=== PATIENT | female | born 1955 | race Caucasian/White ===

== ENCOUNTER 2020-09-29 23:03 | Emergency (ER) | payer BC, MEDICARE, SELFPAY ==
--- NOTE | ~2020-09-29 | XR_ITS ---
EXAMINATION: XR CHEST CLINICAL INFORMATION: Syncope COMPARISON: None TECHNIQUE: Frontal view of the chest was obtained. FINDINGS: The cardiac and mediastinal contours are normal. The lungs are clear. There is no pleural effusion or pneumothorax. There are degenerative changes of the spine. XR/XR chest 1V IMPRESSION: Unremarkable examination.
--- NOTE | ~2020-09-29 | CT_ITS ---
EXAMINATION: CT HEAD WITHOUT CONTRAST CLINICAL INFORMATION: Syncope COMPARISON: 03/18/2018 TECHNIQUE: Contiguous axial imaging was performed from the skull base to vertex without intravenous administration of contrast. This CT examination was performed using dose optimization techniques as appropriate, variously including the following: *Automated exposure control *Adjustment of mA and/or kV according to patient size (this includes techniques or standardized protocols for targeted exams where dose is matched to indication/reason for exam; i.e. extremities or head) *Use of iterative reconstruction technique DLP: 698 mGy-cm FINDINGS: There is no evidence of acute intracranial hemorrhage or territorial infarction. No abnormal mass effect or midline shift is seen. Yu to white matter differentiation is well preserved. No extra-axial fluid collections are identified. The ventricles are normal in size. There is no abnormal attenuation within the brain parenchyma. The osseous structures and soft tissues are normal. The mastoid air cells and visualized portions of the paranasal sinuses are well aerated. CT/CT head/brain wo con IMPRESSION: No acute intracranial pathology.
--- NOTE | 2020-09-29 23:07 | ECG_ITS ---
Test Reason : SYNCOPE Blood Pressure : / mmHG Vent. Rate : 051 BPM Atrial Rate : 051 BPM P-R Int : 194 ms QRS Dur : 110 ms QT Int : 488 ms P-R-T Axes : 079 -27 031 degrees QTc Int : 449 ms Sinus bradycardia Minimal voltage criteria for LVH. Abnormal ECG When compared with ECG of 13-MAR-2005 20:57, No significant change was found Referred By: Yolanda Coreas Electronically Signed By:Armand Junior
[2020-09-29 23:14] VITALS: BP 111/64; PULSE 53; RESP 14; TEMP 37; O2SAT 96; BMI 24.3
[2020-09-29 23:29] VITALS: BP 99/56; PULSE 55; RESP 16; TEMP 36.6; O2SAT 96; BMI 25.0
--- NOTE | 2020-09-29 23:33 | ED_ITS ---
HPI - Syncope General Chief Complaint: Syncope Stated Complaint: syncope fall Time Seen by Provider: 09/29/20 23:07 Source: patient Mode of arrival: ambulatory History of Present Illness HPI narrative: 65-year-old female with significant past medical history of rheumatoid arthritis on Enbrel for 20 years and no recent changes as well as ci talopram for depression. Patient is brought in by EMS after she had 2 episodes of syncope and does not recall any prodromes such as palpitations/visual changes/shortness of breath/dizziness. Patient states that the 1st episode occurred when she went to the kitchen to get a cookie and then woke up on the kitchen floor with her family asking ?word the blood come from?. Patient states that she stood up and was walking through the pate and then again the next recollection was that her son was shaking her and asking her if she was okay. She stated that time she was ?very sweaty and had cold skin?. Patient sources that she has had a bottle of wine, Ativan, as well as 5 mg THC but that she usu ally has this without any complications. However, patient states that she has not had water all day. Patient's 2nd COVID-19 vaccine was on 09/17. Related Data Allergies Allergy/AdvReac Type Severity Reaction Status Date / Time dicloxacillin [DICLOXACILLIN] Allergy Severe ANAPHYLAXIS Verified 09/29/20 23:13 nystatin [NYSTATIN] Allergy Intermediate THRUSH Verified 09/29/20 23:13 docosanol [Abreva] Allergy Unknown Hives Verified 09/29/20 23:13 leflunomide [From ARAVA] Allergy Unknown RASH Verified 09/29/20 23:13 Review of Systems Review of Systems: Pertinent positives and negatives as stated in HPI 10 point review of systems is otherwise negative. [facility] Past Medical History Source: nursing notes reviewed Medical History Rheumatoid arthritis Social History Social History Alcohol intake: current Alcohol intake frequency: a few times a week Alcohol type: wine Smoking Status: Never smoker Substance Use Type: Marijuana Substance Use Type Other:: MARIJUANA GUMMIES FOR SLEEP Substance Use Frequency: Daily Advance Directives: No Advance Directives Information Provided: No Physical Exam Vital Signs: Vital Signs: Last Vital Signs Temp 97.9 F 09/29/20 23:29 Pulse 64 09/30/20 00:21 Resp 16 09/29/20 23:29 BP 107/66 09/30/20 00:21 Pulse Ox 96 09/29/20 23:29 Body Mass Index 25.0 VITAL SIGNS: Reviewed. GENERAL: Well developed, well nourished, in no acute distress. HEAD: Normocephalic/2 cm laceration to submental that is hemostatic EYES: PERRLA, EOMI intact without pain, no nystagmus NOSE: Nares patent bilateral OROPHARYNX: no oral lesions noted, posterior pharynx clear, no intraoral lesions NECK: Supple, no adenopathy LUNGS: Normal breath sounds. No adventitious sounds or accessory muscle use. SpO2<96> CARDIOVASCULAR: Regular rate and rhythm without noted murmurs ABDOMEN: Soft, non-tender, non-distended with bowel sounds. MUSCULOSKELETAL: No tenderness, deformities, or effusions noted on gross inspection. EXTREMITIES: No cyanosis, clubbing or edema. SKIN: Inspection of the skin reveals no rashes, ulcerations, jaundice, pallor, or petechiae. NEUROLOGIC: Alert and oriented x 4. Strength and sensation to light touch were grossly intact x 4, cranial nerves 2-12 grossly intact, no pronator drift, no facial asymmetry. Course Course Course Narrative: 65-year-old female with history and clinical presentation most consistent with drug associated vasovagal episode likely contributed by poor fluid intake but will evaluate for evidence of infection, anemia, or arrhythmia. Review of all investigations negative for any acute findings that may have contributed to patient's syncopal episode. Orthostatics are negative and point of care glucose is within normal limits. All results and findings were discussed with patient at bedside, she received 1 L of IV fluids and the small submental laceration was repaired with Dermabond and patient was discharged home in stable condition. Procedures Laceration Laceration 1: Site: face Size (cm): 2 Description: linear Depth: simple, single layer Pre-repair: irrigated extensively Skin layer closed with: other (Dermabond) MDM - Syncope Lab Data Result diagrams: 09/29/20 23:48 09/29/20 23:48 Labs: Lab Results 05/07/21 05/07/21 05/07/21 Range/Units 23:48 23:48 23:48 WBC 4.6 L (4.8-10.8) X10*3/uL RBC 4.08 L (4.20-5.50) X10*6/uL Hgb 13.1 (12.0-16.0) g/dl Hct 39.9 (37-47) % MCV 97.8 (80-98) fL MCH 32.1 (27.0-33.0) pg MCHC 32.8 (31.0-35.0) g/dl RDW 12.5 (11.0-16.0) % Plt Count 207 (160-400) X10*3/uL MPV 9.8 (9.4-12.3) fL Immature Gran % (Auto) 0.0 (0.0-0.4) % Neut % (Auto) 28.7 L (45-73) % Lymph % (Auto) 60.2 H (20-40) % [place] % (Auto) 8.6 (2-11) % Eos % (Auto) 1.8 (0-4) % Baso % (Auto) 0.7 (0-2) % Lymph # (Auto) 2.7 (1.2-4.9) X10*3/uL [place] # (Auto) 0.4 (0.1-1.2) X10*3/uL Eos # (Auto) 0.1 (0.0-0.4) X10*3/uL Baso # (Auto) 0.0 (0.0-0.2) X10*3/uL Abs Immat Gran (auto) 0.00 (0.00-0.03) X10*3/uL Absolute Neuts (auto) 1.3 L (2.0-8.3) X10*3/uL Absolute Nucleated RBC 0.000 (0.0-0.012) X10*3/uL Nucleated RBC % (auto) 0.0 (0.0-0.2) /100WBC Smear Tech's Comments VERIFIED PT 10.7 L (10.8-13.0) SEC INR 0.9 (0.9-1.1) Sodium 142 (135-145) mmol/L Potassium 4.4 (3.3-5.1) mmol/L Chloride 105 (96-108) mmol/L Carbon Dioxide 26 (22-29) mmol/L Anion Gap 15 (12-20) BUN 12 (9-16) mg/dL Creatinine 1.06 (0.5-1.4) mg/dL Estim Creat Clear Calc 51.9 Estimated GFR 52 POC Glucose (60-115) mg/dL Random Glucose 89 (60-115) mg/dL Calcium 9.5 (8.4-10.2) mg/dL Magnesium (1.6-2.6) mg/dL Total Bilirubin 0.3 (0.0-1.0) mg/dL AST 22 (5-31) U/L ALT 15 (0-31) U/L Alkaline Phosphatase 62 (39-117) U/L Troponin I High Sens (<3.5-17.0) ng/L Total Protein 7.3 (6.5-8.0) g/dL Albumin 4.2 (3.5-5.0) g/dL 09/29/20 09/29/20 09/30/20 Range/Units 23:48 23:48 00:17 WBC (4.8-10.8) X10*3/uL RBC (4.20-5.50) X10*6/uL Hgb (12.0-16.0) g/dl Hct (37-47) % MCV (80-98) fL MCH (27.0-33.0) pg MCHC (31.0-35.0) g/dl RDW (11.0-16.0) % Plt Count (160-400) X10*3/uL MPV (9.4-12.3) fL Immature Gran % (Auto) (0.0-0.4) % Neut % (Auto) (45-73) % Lymph % (Auto) (20-40) % [place] % (Auto) (2-11) % Eos % (Auto) (0-4) % Baso % (Auto) (0-2) % Lymph # (Auto) (1.2-4.9) X10*3/uL [place] # (Auto) (0.1-1.2) X10*3/uL Eos # (Auto) (0.0-0.4) X10*3/uL Baso # (Auto) (0.0-0.2) X10*3/uL Abs Immat Gran (auto) (0.00-0.03) X10*3/uL Absolute Neuts (auto) (2.0-8.3) X10*3/uL Absolute Nucleated RBC (0.0-0.012) X10*3/uL Nucleated RBC % (auto) (0.0-0.2) /100WBC Smear Tech's Comments PT (10.8-13.0) SEC INR (0.9-1.1) Sodium (135-145) mmol/L Potassium (3.3-5.1) mmol/L Chloride (96-108) mmol/L Carbon Dioxide (22-29) mmol/L Anion Gap (12-20) BUN (9-16) mg/dL Creatinine (0.5-1.4) mg/dL Estim Creat Clear Calc Estimated GFR POC Glucose 78 (60-115) mg/dL Random Glucose (60-115) mg/dL Calcium (8.4-10.2) mg/dL Magnesium 2.2 (1.6-2.6) mg/dL Total Bilirubin (0.0-1.0) mg/dL AST (5-31) U/L ALT (0-31) U/L Alkaline Phosphatase (39-117) U/L Troponin I High Sens < 3.5 (<3.5-17.0) ng/L Total Protein (6.5-8.0) g/dL Albumin (3.5-5.0) g/dL ECG Data Attestation: I personally reviewed and interpreted this ECG as follows: Prior ECG tracings: not available for review Interpretation: Sinus bradycardia, HR -51, no evidence of acute ischemia, KS/QTC within normal limits Discharge Plan Discharge Clinical Impression: Vasovagal syncope Patient Disposition: Home, Self-Care Instructions: Syncope (ED) Additional Instructions: 1. Resume all home medications as prescribed. 2. Increase fluid hydration especially with water. 3. Please follow-up with your primary care provider in 2-3 days for re-basil luation. Do not hesitate to return to the emergency room for any acute worsening of your symptoms. Referrals: Physician,Unknown [Primary Care Provider] - 2 days
[2020-09-29 23:55] LABS: Basophils Percent Auto 0.7 % (0-2); Eosinophils Absolute Auto 0.1 X10*3/uL (0.0-0.4); Eosinophils Percent Auto 1.8 % (0-4); Hematocrit 39.9 % (37-47); Hemoglobin 13.1 g/dl (12.0-16.0); Lymphocytes Absolute Auto 2.7 X10*3/uL (1.2-4.9); Lymphocytes Percent Auto 60.2 % (20-40); MANUAL DIFF FLAG SCAN; Mean Corpuscular HGB Conc 32.8 g/dl (31.0-35.0); Mean Corpuscular Hemoglobin 32.1 pg (27.0-33.0); Mean Corpuscular Volume 97.8 fL (80-98); Mean Platelet Volume 9.8 fL (9.4-12.3); Monocytes Absolute Auto 0.4 X10*3/uL (0.1-1.2); Monocytes Percent Auto 8.6 % (2-11); Neutrophils Absolute Auto 1.3 X10*3/uL (2.0-8.3); Neutrophils Percent Auto 28.7 % (45-73); Platelet Count 207 X10*3/uL (160-400); Red Blood Count 4.08 X10*6/uL (4.20-5.50); Red Cell Distribution Width 12.5 % (11.0-16.0); SCAN SMEAR FLAG 1; White Blood Count 4.6 X10*3/uL (4.8-10.8)
[2020-09-30 00:05] LABS: INTERNATIONAL NORM RATIO 0.9 (0.9-1.1); Prothrombin Time 10.7 SEC (10.8-13.0)
[2020-09-30 00:15] LABS: SLIDE REVIEW VERIFIED
[2020-09-30 00:19] VITALS: BP 106/59; PULSE 54; PULSE 66
[2020-09-30 00:21] VITALS: BP 107/66; PULSE 64
[2020-09-30 00:22] LABS: Magnesium 2.2 mg/dL (1.6-2.6)
[2020-09-30 00:24] LABS: Alanine Aminotransferase 15 U/L (0-31); Albumin Level 4.2 g/dL (3.5-5.0); Alkaline Phosphatase 62 U/L (39-117); Anion Gap 15 (12-20); Aspartate Amino Transferase 22 U/L (5-31); Bilirubin Total 0.3 mg/dL (0.0-1.0); Blood Urea Nitrogen 12 mg/dL (9-16); Calcium 9.5 mg/dL (8.4-10.2); Carbon Dioxide 26 mmol/L (22-29); Chloride 105 mmol/L (96-108); Creatinine Clr Calc Pharmacy 51.9; Estimated Glomerular Filt Rate 52; Glucose Random 89 mg/dL (60-115); Potassium 4.4 mmol/L (3.3-5.1); Sodium 142 mmol/L (135-145); Total Protein 7.3 g/dL (6.5-8.0)
[2020-09-30 00:25] LABS: Glucose, Whole Blood 78 mg/dL (60-115)
[2020-09-30 00:29] LABS: Troponin-I High Sensitivity < 3.5 ng/L (<3.5-17.0)
[2020-09-30] MEDS: 0.9 % Sodium Chloride 1,000 ML 999 ML IV (00:49)
== END 2020-09-30 02:04 | disposition home or self-care (01) ==
PROVIDERS: Emergency Provider Student in an Organized Health Care Education/Training Program
DX: R55 Syncope and collapse (principal); S01.81XA Laceration without foreign body of other part of head, initial encounter; W18.30XA Fall on same level, unspecified, initial encounter; Y93.89 Activity, other specified; Y92.019 Unspecified place in single-family (private) house as the place of occurrence of the external cause; Y99.9 Unspecified external cause status
CPT/HCPCS: 12011; 36415; 70450; 71045; 80053; 82947; 83735; 84484; 85025; 85610; 93005; 96360; 99284

== ENCOUNTER 2024-07-07 07:21 | Day surgery (SDC) | payer OTHER, MEDICARE, SELFPAY ==
[2024-07-05 14:11] VITALS: BMI 25.1
--- NOTE | 2024-07-06 08:22 | P.CONAN_ITS ---
Documented by User: Myla Feliciano NP 07/06/24 08:22 HPI - Anesthesia Eval Consult details Narrative: 68yo F for Colonoscopy PMFSH Past Medical History Medical History Anxiety Depression Melanoma GERD (gastroesophageal reflux disease) Rheumatoid arthritis Surgical History Surgical History Hx of excision of mass Hx of tubal ligation Hx of hemorrhoidectomy History of esophagogastroduodenoscopy (EGD) H/O colonoscopy Social History Social History (Updated 07/07/24 @ 10:14 by Tiarra Buckley MD) Household Members: Spouse Are you a primary health care sanitary technician to a significant other at home: No Do you presently have visiting nurse or other home services: No Alcohol intake: current Alcohol intake frequency: a few times a week Alcohol type: wine Patient Tobacco Use Status: Former Tobacco user Tobacco use type: Cigarette Substance Use Type: Marijuana Meds Allergies Allergy/AdvReac Type Severity Reaction Status Date / Time dicloxacillin [DICLOXACILLIN] Allergy Severe ANAPHYLAXIS Verified 07/07/24 08:11 docosanol [Abreva] Allergy Intermediate Hives Verified 07/07/24 08:11 leflunomide [From ARAVA] Allergy Intermediate RASH Verified 07/07/24 08:11 nystatin [NYSTATIN] Allergy Intermediate THRUSH Verified 07/07/24 08:11 Home Medications ?Medication ?Instructions ?Recorded ?Confirmed ?Last Taken ?Type citalopram 10 mg tablet 10 mg PO DAILY 07/05/24 07/05/24 Unknown History etanercept 50 mg/mL (1 mL) 50 mg subcut 2XW 07/05/24 07/05/24 Unknown History subcutaneous syringe (Enbrel) latanoprost 0.005 % eye drops 1 drp ophthalmic (eye) DAILY 07/05/24 07/05/24 Unknown History lorazepam 1 mg tablet 1 mg PO TID PRN Anxiety 07/05/24 07/05/24 Unknown History lifitegrast 5 % eye drops in a 1 drp ophthalmic (eye) Q12H 07/07/24 07/07/24 Unknown History dropperette (Xiidra) Exam Height,Weight and Vital Signs: Height 5 ft 8 in Weight 74.843 kg Assessment and Plan Assessment Anesthesia Assessment: Chart Reviewed Documented by User: Tiarra Buckley MD 07/07/24 10:15 PMFSH Active Problems Active Problems: Anxiety/ Depression GERD Denies marijuana use. Tried edibles years ago but did not like Past Medical History Medical History Anxiety Depression Melanoma GERD (gastroesophageal reflux disease) Rheumatoid arthritis Family History Family history of problems with anesthesia: No Surgical History Surgical History Hx of excision of mass Hx of tubal ligation Hx of hemorrhoidectomy History of esophagogastroduodenoscopy (EGD) H/O colonoscopy History of Problems with Anesthesia: No Social History Social History (Updated 07/07/24 @ 10:14 by Tiarra Buckley MD) Household Members: Spouse Are you a primary health care sanitary technician to a significant other at home: No Do you presently have visiting nurse or other home services: No Alcohol intake: current Alcohol intake frequency: a few times a week Alcohol type: wine Patient Tobacco Use Status: Former Tobacco user Tobacco use type: Cigarette Substance Use Type: Marijuana Meds Allergies Allergy/AdvReac Type Severity Reaction Status Date / Time dicloxacillin [DICLOXACILLIN] Allergy Severe ANAPHYLAXIS Verified 07/07/24 08:11 docosanol [Abreva] Allergy Intermediate Hives Verified 07/07/24 08:11 leflunomide [From ARAVA] Allergy Intermediate RASH Verified 07/07/24 08:11 nystatin [NYSTATIN] Allergy Intermediate THRUSH Verified 07/07/24 08:11 Home Medications ?Medication ?Instructions ?Recorded ?Confirmed ?Last Taken ?Type citalopram 10 mg tablet 10 mg PO DAILY 07/05/24 07/05/24 Unknown History etanercept 50 mg/mL (1 mL) 50 mg subcut 2XW 07/05/24 07/05/24 Unknown History subcutaneous syringe (Enbrel) latanoprost 0.005 % eye drops 1 drp ophthalmic (eye) DAILY 07/05/24 07/05/24 Unknown History lorazepam 1 mg tablet 1 mg PO TID PRN Anxiety 07/05/24 07/05/24 Unknown History lifitegrast 5 % eye drops in a 1 drp ophthalmic (eye) Q12H 07/07/24 07/07/24 Unknown History dropperette (Xiidra) Exam Height,Weight and Vital Signs: Height 5 ft 8 in Weight 74.843 kg Vital Signs Temp Pulse Resp BP Pulse Ox O2 Del Method 07/07/24 08:16 97.0 F 69 14 138/74 97 Room Air Airway Mallampati Class: II TM Dist: >3cm Neck ROM: Full Loose/Missing/Broken Teeth: No (Denies broken or loose teeth) Heart: RRR Lungs: CTAB Assessment and Plan Assessment Anesthesia Assessment: Anesthesia Plan Discussed and Chart Reviewed Final Anesthetic Review Family History of Problems with Anesthesia: No History of Problems with Anesthesia: No NPO: Yes ASA Class: II Final Preanesthetic Review: No Changes in Pt Med Stat, Meds/Allgs Chart Reviewed, Consent Obtained/Reviewed and Anes Risks/Benef Reviewed Patient Risk: Low Procedure Risk: Low Assessment/Block/Sedation in SS: Assess/Block/Sedation-SS Anesthetic Plan Anesthetic Plan: TIVA Disposition: Standard PACU
--- OUTSIDE RECORDS SUMMARY | 2024-07-07 07:24 | XMS_ITS | Patient Health Record ---
Author Organization [facility] Address [address] [place] [id number] Care Team Providers Care Shipping Hand Name Role Phone Mae Rushing Primary Care Provider U mal Regulo Gregorio [phone] ALLERGIES Allergen (clinical drug ingredient) Drug/Non Drug Allergy documented on EMR Reaction Allergy Type Onset Date Status doxycycline Doxycycline Unknown Drug Allergy Act yue nystatin Nystatin Unknown Drug Allergy Active leflunomide Arava Unknown Drug Allergy Activ e REASON FOR REFERRAL No Information MEDICATIONS Medication SIG (Take, Route, Frequency, Duration) Notes Start Date End Date Status Xiidra 5 % Ophthalmic for 90 A ctive Latanoprost 0.005 % Ophthalmic for 90 Active Dicyclomine HCl 10 MG 1 or 2 capsules Or ally Every 6 hours as needed for abdominal pain/discomfort/cramps for 30 day(s) 03/19/2024 Active LORazepam 1 MG (Schedule IV Drug) T MANJEET 1 TABLET BY MOUTH 3 TIMES A DAY NEEDED FOR ANXIETY Oral for 28 Active Citalopram Hydrobromide 10 MG 1 tablet Orally Once a day A ctive Enbrel 50 MG/ML 1 ml Subcutaneous Active SOCIAL HISTORY Tobacco Use: Social History Observation Description Date Details (start date - stop date) Former Smoker NA - NA Sex Assigned At : Social History Observation Description Sex Assigned At Unknown Tobacco Use/Smoking Question Answer Notes Patient is a former smoker How long has it been since you last smoked? > 10 years Alcohol Screen Question Answer Notes Did you have a drink contain ing alcohol in the past year? Yes How often did you have a dri nk containing alcohol in the past year? Monthly or less (1 point) How many drinks did you have on a typical day when you were drinking in the past year? 1 or 2 drinks (0 point) How often did you have 6 or more drinks on one occasion in the past year? Never (0 point) Points 1 Interpretation Negative PROBLEMS Problem Type ICD Code Onset Dates Problem Status W/U Status Risk SNOMED Code Notes Problem Encounter for screening for malignant neoplasm of colon (Z12.11) Active confirmed 168871126 Problem Preprocedural examination (Z01.818) Active confirmed 578870413 Problem Change in bowel habits (R19.4) Active confirmed Change in bowel habit (62249202) Problem Irritable bowel syndrome (K58.9) Active confirmed Irritable bowel syndrome (26473855) Problem Abdominal pain, acute, left lower quadrant (R10.32) Active confirmed Left lower quadrant pain (398694329) VITAL SIGNS Blood pressure diastolic 0 mm Hg 03/19/2024 Height 68 in 03/19/2024 Blood pressure systolic 00 mm Hg 03/19/2024 Weight 165 lbs 03/19/2024 BMI 25.09 kg/m2 03/19/2024 Encounters Encounter Location Date Provider Diagnosis [facility] [address] [place] [address] [phone] 07/07/2024 Regulo Gregorio [facility] [address] [facility] [address] [place] [id number] 03/19/2024 Regulo Gregorio Change in bowel habits R19.4 ; Irritable bowel syndrome K58.9 and Abdominal pain, acute, left lower quadrant R10.32 [facility] [address] [id number] 03/19/2024 Regulo Gregorio ASSESSMENTS Encounter Date Diagnosis Assessment Notes Treatment Notes Treatment Clinical Notes 03/19/2024 Irritable bowel syndrome (ICD-10 - K58.9) 03/19/2024 Change in bowel habits (ICD-10 - R19.4) Continue Metmucil, High fiber diet, and a lot of water during the day 03/19/2024 Abdominal pain, acute, left lower quadrant (ICD-10 - R10.32) PLAN OF TREATMENT Future Test Test Name Order Date COLONOSCOPY 02/28/2017 COLONOSCOPY 03/19/2024 Next Appt Details Provider Name:Regulo Gregorio , 07/07/2024 08:40:00 AM, [address] [facility] , [place], [place], [id number], Insurance Providers Payer Name Payer Address Payer Phone Subscriber Number Group Number Insured Name Patient Relationship to Insured Coverage Start Date Coverage End Date [employer] [facility] [address] [address] [place] [address] [phone] [id number] MATTHEW CHA Self - patient is the insured MEDICARE OF [place] [address] [place] [address] [id number] [facility] Self - patient is the insured MEDICAL (GENERAL) HISTORY Medical History History ICD Code Denies [place],DM,CVA,Lung disease,renal dise ase Rheumatoid arthritis--hands, knees, neck Neg. screening colonoscopy in 09/2006 GERD-EGD in 09/2006--small HH, no esophag itis, no Gabriel's Depression Negative screening colonoscopy in 7 Surgical History Surgery Date(Month/Year) Hemorrhoidectomy--2015--Dr. Liang Tubal ligation Melanoma excision--on the left knee---ap prox 2009
--- OUTSIDE RECORDS SUMMARY | 2024-07-07 07:24 | XMS_ITS | Continuity of Care Document ---
Author Organization [facility] Cj lt Address [address] [place] [address]- Care Team Providers Care Basic Combatant Swimmer Name Role Phone Mae Coombs Primary Care Physician [place] [facility] [place] 06/19/24 [facility] Adult [address] [place] [address]- Encounter Type: Triage Allergies, Adverse Reactions, Alerts Substance Criticality Severity Reaction Reaction Severity Status dicloxacillin Active pravastatin leg pains, RLS, GERD Active zolpidem sleepwalking and insomnia Active nystatin Active Arava Active Fosamax foot and hand s welling esophagitis and hand swelling Active Duloxetine Rash Active Immunizations Given and Recorded Vaccine Date Status Refusal Reason influenza virus vaccine, inactivated 02/03/23 Omar rded influenza virus vaccine, inactivated 02/25/22 Give n influenza virus vaccine, inactivated 02/12/21 Omar rded influenza virus vaccine, inactivated 02/21/20 Give n influenza virus vaccine, inactivated 1 02/23/18 Gi jina influenza virus vaccine, inactivated 03/22/16 Give n influenza virus vaccine, inactivated 2 03/09/15 Gi jina influenza virus vaccine, inactivated 3 10/17/14 Gi jina influenza virus vaccine, inactivated 4 03/18/13 Gi jina SARS-CoV-2 (COVID-19) mRNA BNT-162b2 vac 01/09/21 Recorded SARS-CoV-2 (COVID-19) mRNA BNT-162b2 vac 09/03/20 Recorded SARS-CoV-2 (COVID-19) mRNA BNT-162b2 vac 08/15/20 Recorded Influenza Virus Vaccine (oldterm) 5 03/04/19 Recor ded Influenza Virus Vaccine (oldterm) 02/14/17 Given Influenza Virus Vaccine (oldterm) 6 03/31/07 Given Influenza Virus Vaccine (oldterm) 7 03/19/06 Given Zoster Vaccine Live 8 02/05/19 Recorded pneumococcal 13-valent vaccine 03/22/16 Given pneumococcal 23-valent vaccine 10/13/14 Given tetanus/diphtheria/pertussis, acel(Tdap) 05/16/14 Given Fluzone Preservative-Free (oldterm) 02/11/12 Given Fluarix (oldterm) 9 02/28/11 Given FluLaval (oldterm) 10 02/28/09 Given Influenza Inactive (IM) (oldterm) 03/02/08 Given Pneumococcal Vaccine (oldterm) 07/03/04 Given diphtheria-tetanus toxoids (DT) 04/25/04 Given 1Result Comment: [02/23/2018] [facility] [id number] 2Admin Note: [facility] 3Admin Note: DR WILLS OFFICE 4Admin Note: [facility] 5Result Comment[facility] 6Admin Note: given in clinic 7Admin Note: GIVEN IN CLINIC SHAM 8Result Comment: Pharmacy 9Admin Note: [facility] 10Admin Note: [facility] Medications citalopram 20 mg oral tablet 1 tablet, By Mouth, Daily, # 90 tablet, 1 Refills, Maintenance, 04/21/24 10:00:00 AM EST, [id number], 173, cm, 03/16/24 10:27:00 EDT, Height, 75.1, kg, 03/14/24 17:21:00 EDT, Dry Weight Start Date: 04/21/24 Status: Ordered Quantity: 90.0 Unit: tablet Repeat number: 1 Compression Stockings See Instructions, # 2 pair, Refills 3, Tot. Refills 3, Maintenance, surgical, thigh high length 20-30 mm Hg, 11/27/18 3:09:12 PM EDT, Compound Start Date: 11/27/18 Status: Ordered Quantity: 2.0 Unit: pair Repeat number: 4 Enbrel = 50 mg, Subcutaneous Infusion, 0 Refills, Maintenance, 05/16/17 9:26:43 AM EST Start Date: 05/16/17 Status: Ordered Repeat number: 1 Flonase 0.05 mg/inh nasal spray 2 sprays, Nasal, Daily, PRN prn, in each nostril, # 3 each, 0 Refills, Maintenance, bid x 7 days, then qd, 12/31/13 11:55:20 AM EDT, [facility]/pharmacy #[id number], 2 sprays Nasal Daily,PRN:prn,Instr:in each nostril Start Date: 12/31/13 Status: Ordered Quantity: 3.0 Unit: each Repeat number: 1 ibandronate 150 mg oral tablet 1 tablet, By Mouth, Every 30 days, # 2 tablet, 5 Refills, Maintenance, 01/05/24 7:56:00 AM EDT, [facility]/pharmacy #[id number], 170.5, cm, 11/06/22 8:10:00 EDT, Height Start Date: 01/05/24 Status: Ordered Quantity: 2.0 Unit: tablet Repeat number: 6 Latanoprost Ophthalmic Daily before dinner, 0 Refills, Maintenance, 10/26/19 10:10:00 AM EDT Start Date: 10/26/19 Status: Ordered Repeat number: 1 LORazepam 0.5 mg oral tablet 1 tablet, By Mouth, 2 times a day, # 60 tablet, 2 Refills, Maintenance, 05/21/24 4:00:00 AM EST, [facility]/pharmacy #[id number], 173, cm, 03/16/24 10:27:00 EDT, Height, 75.1, kg, 03/14/24 17:21:00 EDT, Dry Weight Start Date: 05/21/24 Status: Ordered Quantity: 60.0 Unit: tablet Repeat number: 3 Xiidra 5% ophthalmic solution 1 drops, Eyes, Both, 2 times a day, 0 Refills, Maintenance, 03/16/24 10:26:00 AM EDT, Partial fill upon patient request if the prescription is for a schedule II opioid drug. Start Date: 03/16/24 Status: Ordered Repeat number: 1 Problem List Condition Confirmation Course Effective Dates Status Health Status Informant [M] Melanoma in situ Confirmed Active Anxiety Confirmed Active Cervicalgia Confirmed Active Chronic osteoarthritis Confirmed 01/10/09 Active Chronic pain syndrome Confirmed Active Atrial ectopy Confirmed Active Ex-cigarette smoker: Confirmed Active Family history of alcoholism: son Confirmed Active Glaucoma Confirmed Active Herpes genitalis Confirmed 01/10/09 Active Hip pain, bilateral Confirmed Active Hypercholesterolemia - ASCVD 10 year risk is 3.8% as of 02/14/2017 Confirmed 12/09/11 Active Urinary frequency Confirmed Active Insomnia Confirmed Active Insomnia Confirmed 04/15/11 Active Long-term use of immunosuppressant medication Confirmed Active Moderate major depression Confirmed Active Osteoporosis Confirmed Active [facility] benzodiazepine use Confirmed Active Rheumatoid arthritis Confirmed Active Social History Social History Type Response Smoking Status Former smoker entered on: 05/16/14 Sex Sex Representation Female (finding) Patient Care team information Care Team Personnel Name: Mae Coombs Position: [facility] PCO Associate Professional Member Role: PCP Address: [address] [place] [address] Telecom: Care Team Related Persons Name: ARPIT CRUZ Insurance Providers Guarantor name: MATTHEW LAURYN Health Plan Information #: 1 Payer: MEDICARE PART B OUTPT Member Number: NA Policy Number: NA Group Number: NA
--- OUTSIDE RECORDS SUMMARY | 2024-07-07 07:24 | XMS_ITS ---
Author Organization [facility] Address [address] [place] [address] Care Team Providers Care Scale Agent Name Role Phone Mae Rushing Primary Care Provider Regulo Byers Unavailable [phone] REASON FOR VISIT change in bowels, IBS, LLQ abdominal pain Encounters Encounter Location Date Provider Diagnosis [facility] Outpatient [address] [place] [id number] 07/07/2024 Regulo Gregorio PLAN OF TREATMENT Next Appt Details Provider Name:Regulo Gregorio , 07/07/2024 08:40:00 AM, [address] [place] [address], [phone],
--- OUTSIDE RECORDS SUMMARY | 2024-07-07 07:24 | XMS_ITS | Continuity of Care Document ---
Author Organization [facility] Cj lt Address [address] [place] [address]- Care Team Providers Care Ground Instructor Advanced Name Role Phone Mae Coombs Primary Care Physician [phone] [place] [facility] [place](s): 05/22/24 - 06/21/24 [facility] Adult [address] [place] [address]- Encounter Type: Triage Allergies, Adverse Reactions, Alerts Substance Criticality Severity Reaction Reaction Severity Status dicloxacillin Active pravastatin leg pains, RLS, GERD Active nystatin Active Fosamax foot and hand s welling esophagitis and hand swelling Active Duloxetine Rash Active zolpidem sleepwalking and insomnia Active Arava Active Immunizations Given and Recorded Vaccine Date [...] toxoids (DT) 04/25/04 Given 1Result Comment: [02/23/2018] [facility] [id number] 2Admin Note: [facility] 3Admin Note: DR WILLS OFFICE 4Admin Note: [facility] 6Admin Note: given in clinic 7Admin Note: GIVEN IN CLINIC SHAM 8Result Comment: Pharmacy 9Admin Note: [facility] 10Admin Note: [facility] Medications citalopram 20 mg oral tablet 1 tablet, By Mouth, Daily, # 90 tablet, 1 Refills, Maintenance, 04/21/24 10:00:00 AM EST, [id number], 173, cm, 03/16/24 10:27:00 EDT, Height, 75.1, [...] days, then qd, 12/31/13 11:55:20 AM EDT, [facility]/pharmacy #[id number], 2 sprays Nasal Daily,PRN:prn,Instr:in each nostril Start Date: 12/31/13 Status: Ordered Quantity: 3.0 Unit: each Repeat number: 1 ibandronate 150 mg oral tablet 1 tablet, By Mouth, Every 30 days, # 2 tablet, 5 Refills, Maintenance, 01/05/24 7:56:00 AM EDT, [facility]/pharmacy #[id number], 170.5, cm, 11/06/22 8:10:00 EDT, Height Start Date: 01/05/24 Status: Ordered Quantity: 2.0 Unit: tablet Repeat number: 6 Latanoprost Ophthalmic Daily before dinner, 0 Refills, Maintenance, 10/26/19 10:10:00 AM EDT Start Date: 10/26/19 Status: Ordered Repeat number: 1 LORazepam 0.5 mg oral tablet 1 tablet, By Mouth, 2 times a day, # 60 tablet, 2 Refills, Maintenance, 05/21/24 4:00:00 AM EST, [facility]/pharmacy #[id number], 173, cm, 03/16/24 10:27:00 EDT, Height, [...] major depression Confirmed Active Osteoporosis Confirmed Active [facility] prescription benzodiazepine use Confirmed Active Rheumatoid arthritis Confirmed Active Social History Social History Type Response Smoking Status Former smoker entered on: 05/16/14 Sex Sex Representation Female (finding) Patient Care team information Care Team Personnel Name: Mae Coombs Position: [facility] PCO Associate Professional Member Role: PCP Address: [address] [place] [address] Telecom: Care Team Related Persons Name: ARPIT CRUZ Insurance Providers Guarantor name: MATTHEW LAURYN Health Plan Information #: 1 Payer: MEDICARE PART B OUTPT Member Number: NA Policy Number: NA Group Number: NA
--- OUTSIDE RECORDS SUMMARY | 2024-07-07 07:24 | XMS_ITS ---
Author Organization [facility] Address [address] [place] [phone] Care Team Providers Care Fire Marshal Refinery Name Role Phone Mae Rushing Primary Care Provider Regulo Byers [phone] Encounters Encounter Location Date Provider Diagnosis [facility] [address] [place] [phone] 03/19/2024 Regulo Gregorio PLAN OF TREATMENT Next Appt Details Provider Name:Regulo Gregorio , 07/07/2024 08:40:00 AM, [address] [place] [address] , [place], [place], [phone],
[2024-07-07 08:13] VITALS: BMI 24.3
[2024-07-07 08:16] VITALS: BP 138/74; PULSE 69; RESP 14; TEMP 36.1; O2SAT 97
[2024-07-07] MEDS: Lactated Ringers 1,000 ML 100 ML IVCONT (08:26)
[2024-07-07 10:11] VITALS: BP 93/52; PULSE 64; RESP 18; TEMP 36.2; O2SAT 97
--- NOTE | 2024-07-07 10:16 | P.BOP_ITS ---
Brief Operative Note Date of Service: 07/07/24 Pre-op diagnosis: Change in bowel habits Post-op diagnosis: other (Diverticulosis) Procedure: Colonoscopy to the cecum and TI Surgeon: Regulo Gregorio MD Anesthesia: MAC Was an Senior Editor used for this Procedure?: No Estimated blood loss (mL): 0 Pathology: none sent Condition: stable Disposition: PACU
[2024-07-07 10:26] VITALS: BP 118/58; PULSE 55; RESP 18; TEMP 36.1; O2SAT 97
--- NOTE | 2024-07-07 10:50 | OP_ITS ---
DATE OF SERVICE: 07/07/2024 SURGEON: Regulo Gregorio MD INDICATIONS: The patient presents for evaluation of change in bowel habits and abdominal discomfort. Full consent has been obtained from her for this, including risks of bleeding and perforation. PREOPERATIVE DIAGNOSIS: POSTOPERATIVE DIAGNOSIS: PROCEDURE PERFORMED: Colonoscopy to cecum and terminal ileum. ESTIMATED BLOOD LOSS: COMPLICATIONS: ANESTHESIA: Monitored anesthesia care. ASSISTANTS: SPECIMENS: PREOPERATIVE DIAGNOSES: Change in bowel habits and abdominal discomfort. POSTOPERATIVE DIAGNOSES: Change in bowel habits and abdominal discomfort, diverticulosis and internal hemorrhoids. DESCRIPTION OF PROCEDURE: The patient was placed in the left lateral decubitus position. The digital rectal exam revealed no abnormalities. The Olympus video pediatric colonoscope was entered into the rectum, advanced easily to the cecum. Once in the cecum, I did identify normal-appearing cecal pouch with appendiceal orifice and a normal-appearing ileocecal valve. The terminal ileum was cannulated and appeared normal. Scope withdrawn back in the colon. The entire cecum and ileocecal valve appeared normal. The scope was slowly withdrawn assessing all mucosal surfaces carefully. Preparation was excellent. I did not visualize any sign of polyps, colitis, nor angiodysplasia. There was a mild amount of sigmoid diverticulosis. In the rectum, scope was retroflexed, visualizing internal hemorrhoids, but no other pathology. The rectal mucosa appeared normal. The scope was straightened and withdrawn from the patient. She tolerated the procedure well and was returned to recovery area in stable condition. IMPRESSION: 1. Diverticulosis. 2. Internal hemorrhoids. PLAN: The patient has been advised to continue her fiber on a regular basis to help keep her bowel movements regular. She will also use dicyclomine as needed for any abdominal discomfort. Given her age and today's negative exam, I do not think she would need any further screening colonoscopies. She will otherwise see me on a p.r.n. basis. Regulo Gregorio MD RMManjinder/VIKTORIA / [id number]
== END 2024-07-07 10:52 | disposition home or self-care (01) ==
PROVIDERS: PCP Physician Assistant; Visit Provider Internal Medicine
PROC: 0DJD8ZZ Inspection of Lower Intestinal Tract, Via Natural or Artificial Opening Endoscopic (ICD-10-PCS; CPT 45378; principal; 2024-07-07 08:40)
DX: R19.4 Change in bowel habit (principal); R10.32 Left lower quadrant pain; K57.30 Diverticulosis of large intestine without perforation or abscess without bleeding; K64.8 Other hemorrhoids; K58.9 Irritable bowel syndrome, unspecified; M06.9 Rheumatoid arthritis, unspecified; Z85.820 Personal history of malignant melanoma of skin; Z79.620 Long term (current) use of immunosuppressive biologic; Z79.899 Other long term (current) drug therapy; Z88.1 Allergy status to other antibiotic agents; Z88.8 Allergy status to other drugs, medicaments and biological substances; Z87.891 Personal history of nicotine dependence
CPT/HCPCS: 45378; J2003; J2704